=== PATIENT | male | born 1990 | race Caucasian/White ===

== ENCOUNTER 2019-06-09 06:36 | Emergency (ER) | payer BC, MEDICAID, SELFPAY ==
[2019-06-09 06:37] VITALS: BP 134/94; PULSE 87; RESP 24; TEMP 36.4; O2SAT 98; BMI 35.5
--- NOTE | 2019-06-09 06:48 | CT_ITS ---
STUDY: CT ABDOMEN AND PELVIS WITHOUT CONTRAST REASON FOR EXAM: Male, 29 years old. Left flank pain today, no history of stones. RADIATION DOSAGE (If Supplied By Facility): CTDIvol = ( 22.24 ) mGy, DLP = ( 1272.70 ) mGycm TECHNIQUE: Transaxial 2 mm images were obtained from the dome of the diaphragm to the symphysis pubis without oral contrast, and without intravenous contrast. Sagittal and coronal images were reconstructed. This examination is limited for the evaluation of gastrointestinal, solid organs and vascular structures due to the lack of intravenous and oral contrast. Individualized dose optimization techniques were used for this CT. COMPARISON: None. FINDINGS: The visualized lung bases are unremarkable. The visualized portions of the heart are within normal limits. Normal liver. Normal gallbladder and extrahepatic biliary system. Normal spleen. Normal pancreas. Normal bilateral adrenal glands. Normal right kidney. Mild left hydronephrosis and hydroureter with minimal stranding, and a 0.2 cm calculus in the left urinary bladder are passed the UVJ. Punctate nonobstructing left mid renal calculus. There is a small hiatal hernia. Normal small intestine. Normal colon. The appendix is visualized and appears normal. Normal abdominal aorta. Normal inferior vena cava. Normal retroperitoneum. Decompressed urinary bladder. Normal visualized prostate gland. There is a small umbilical hernia containing fat. Normal osseous structures. CT/Abdomen/Pelvis without Cont IMPRESSION: Mild left hydronephrosis and hydroureter with a left calculus passed the left UVJ in the urinary bladder. Punctate nonobstructing left mid renal calculus. Normal appendix. Other nonacute findings as outlined above. Electronically Signed: Siobhan Puentes MD at 7:28 EDT , Service support ,
--- NOTE | 2019-06-09 06:49 | ED.DCSUM_ITS ---
History of Present Illness Chief Complaint: Flank Pain Narrative: Patient is a 29-year-old male who presents with sudden onset severe left flank and lower back pain. No history of prior similar symptoms. He has otherwise recently been well. He did develop nausea and vomiting. His pain does not radiate into the abdomen. He denies urinary symptoms such as dysuria frequency urgency. He has no history of kidney stones. He denies any fever. He denies medical history. Past Medical History - Allergies and Home Meds Allergies/Adverse Reactions: Allergies No Known Allergies Allergy (Verified 04/28/17 15:09) Primary Care Physician: Spike Jalloh MD [NON-STAFF] - Past Medical History: None Smoking Status: Current every day smoker Review of Systems All systems negative except as indicated General: Denies: Fever Cardiovascular: Denies: Chest pain Respiratory: Denies: Dyspnea Gastrointestinal: Reports: Nausea, Vomiting Musculoskeletal: Reports: Back pain Skin: Denies: Rash Neurological: Denies: Headache Physical Exam Vital Signs/Narrative: Vital Signs Temp Pulse Resp BP Pulse Ox 06/09/19 06:37 97.6 F L 87 24 H 134/94 H 98 Inital Vital Signs reviewed: Yes General: Acute Distress Head: Normocephalic, Atraumatic Eyes: EOMI ENT: Moist mucous membranes Neck: Supple Cardiovascular: Regular rate, Regular rhythm Respiratory: No distress, CTA bilaterally Abdomen: Soft, Nontender Back: Nontender. Negative for: CVA tenderness Skin: Diaphoresis Neurological: Alert Psychological: Normal affect Diagnostic/Tx/Re-eval Impressions Abdomen/Pelvis CT 06/09/19 06:48 IMPRESSION: Mild left hydronephrosis and hydroureter with a left calculus passed the left UVJ in the urinary bladder. Punctate nonobstructing left mid renal calculus. Normal appendix. Other nonacute findings as outlined above. Electronically Signed: Siobhan Puentes MD at 7:28 EDT , Service support , 06/09/19 06:48 CT Abd [Abdomen/Pelvis without Cont] [CT] Stat Laboratory Results 06/09/19 06/09/19 06:45 06:45 WBC 13.0 H RBC 4.38 L Hgb 13.4 Hct 38.3 L MCV 87.4 MCH 30.6 MCHC 35.0 RDW Std Deviation 38.9 RDW Coeff of Jhonatan 12.2 Plt Count 262 MPV 10.3 Immature Gran % (Auto) 0.500 Neut % (Auto) 24.6 L Lymph % (Auto) 65.3 H [place] % (Auto) 7.6 Eos % (Auto) 1.2 Baso % (Auto) 0.8 Absolute Neuts (auto) 3.2 Absolute Lymphs (auto) 8.52 H Nucleated RBC % 0 Differential Comment SCANNED Reactive Lymphocytes 1+ Sodium 143 Potassium 3.2 L Chloride 106 Carbon Dioxide 24.0 Anion Gap 13 BUN 13 Creatinine 1.30 Estim Creat Clear Calc 93.90 Est GFR (MDRD) Af Amer 83 Est GFR (MDRD) Non-Af 69 BUN/Creatinine Ratio 10.0 Glucose 129 H Calcium 8.9 - Medical Decision Making Patient presented diaphoretic dry heaving and appeared to be in severe pain. He was treated with IV fluids, Toradol, morphine, Zofran. He continued to have severe pain and was given IV Dilaudid. On reevaluation he is much more comfo rtable. He rates his pain as 4 out of 10 which he states is a tolerable level. His laboratory studies were notable only for white count of 13,000. CT of the flank shows a recently passed calculus past the UVJ in the bladder. A urinalysis is pending. Patient will be discharged with a prescription for Percocet and referred to urology. Urinalysis will be checked by the oncoming physician and if any signs of infection we will add on antibiotics. Patient does understand to return for new or worsening symptoms he is agreeable to this plan and he was discharged. ED Disposition - Plan for ED Patient: Disposition: Home or Assisted Living Diagnosis: Urolithiasis Instructions: KIDNEY STONE w/ Colic Prescriptions: Oxycodone HCl/Acetaminophen [Percocet 5/325] 1 tab PO Q6H PRN PRN 3 Days #12 tab PRN Reason: Pain Prescription Printed Referrals: Spike Jalloh MD [NON-STAFF] - Savage Brock MD [STAFF PHYSICIAN] -
[2019-06-09] MEDS: 0.9% Normal Saline 1,000 ML 999 ML IV (06:50)
[2019-06-09] MEDS: Ondansetron 4 MG/2 ML Vial IV (06:50)
[2019-06-09] MEDS: Ketorolac 30 MG/ML Syringe IV (06:50)
[2019-06-09] MEDS: Morphine 4 MG/ML Syringe IV (06:50)
[2019-06-09 07:04] LABS: Absolute Lymphocyte Count 8.52 X10^3/uL (0.83-4.51); Absolute Neutrophil Count 3.2 X10^3/uL (2.0-7.7); Basophil# 0.11 X10^3/uL; Basophil% 0.8 % (0-1); Eosinophil# 0.16 X10^3/uL; Eosinophils% 1.2 % (0-5); Hematocrit 38.3 % (40-54); Hemoglobin 13.4 g/dL (13.0-16.5); Lymphocyte # 8.52 X10^3/ul (4.0); Lymphocyte % 65.3 % (19-41); Mean Corpuscular Hgb 30.6 pg (27.0-32.0); Mean Corpuscular Volume 87.4 fL (80-94); Mean Platelet Vol. 10.3 fl (6.2-12.0); Monocyte# 0.99 X10^3/uL; Monocyte% 7.6 % (0-10); NRBC Flagged by Analyzer 0 % (0-5); Neutrophil # 3.19 X10^3/uL (2.7-7.7); Neutrophil % 24.6 % (47-70); POSITIVE DIFFERENTIAL YES; POSITIVE MORPHOLOGY YES; Platelet Count 262 K/mm3 (150-450); RBC Distribution Width CV 12.2 % (11.6-14.6); RBC Distribution Width SD 38.9 fl (35.1-43.9); Red Blood Count 4.38 M/mm3 (4.6-6.2)
[2019-06-09 07:14] LABS: Differential Indicated SCAN CRITERIA MET
[2019-06-09 07:15] LABS: Anion Gap 13 (5-15); BUN 13 mg/dL (7-18); Calcium,Total 8.9 mg/dL (8.5-10.1); Chloride 106 mmol/L (98-107); EST Glomerular Filtration Rate 69 mL/min (>60); Est Glom Filt Rate - Afr Amer 83 mL/min (>60); Glucose 129 mg/dL (74-106); Potassium 3.2 mmol/L (3.5-5.1); Sodium Level 143 mmol/L (136-145)
[2019-06-09] MEDS: HYDROmorphone 1 MG/ML Syringe IV (07:20)
[2019-06-09 07:23] LABS: Differential Comment SCANNED; Reactive Lymphocyte 1+
[2019-06-09 08:55] VITALS: BP 133/78; PULSE 88; RESP 16; O2SAT 99
[2019-06-09 09:22] LABS: Bacteria 0 SEEN /hpf (None Seen); Mucous, Urine 0 SEEN /hpf (<or=2+); Squamous Epithelial Cells - UA 0 SEEN /hpf (0-5); White Blood Cells 0 SEEN /hpf (0-5)
[2019-06-09 09:23] LABS: Color, Urine Straw (Yellow); Glucose, Dipstick Normal (Normal); Ketone-Dipstick 5 mg/dl (Negative); Leukocyte Esterase-Dipstick 25 /ul (Negative); Nitrite-Dipstick Negative (Negative); Occult Blood-Urine 250 /ul (Negative); Protein-Dipstick 30 mg/dl (Negative); Urine Bilirubin Dipstick Negative (Negative); Urine Clarity Clear (Clear); Urine Urobilinogen Normal (Normal); Urine pH 6.5 (5.0 - 8.0)
[2019-06-09 09:30] LABS: Hyaline Cast 0-5 SEEN /lpf (0-5); Red Blood Cells-Urine 10-25 SEEN /hpf (0-5)
[2019-06-09 09:49] VITALS: BP 138/79; PULSE 74; RESP 16; O2SAT 99
== END 2019-06-09 09:50 | disposition home or self-care (01) ==
PROVIDERS: Emergency Provider Emergency Medicine
DX: N13.2 Hydronephrosis with renal and ureteral calculous obstruction (principal); F17.200 Nicotine dependence, unspecified, uncomplicated
CPT/HCPCS: 74176; 80048; 81001; 85025; 96361; 96374; 96375; 99283; J7030; A4216; J2405